=== PATIENT | female | born 1990 | race Caucasian/White ===

== ENCOUNTER 2017-02-24 22:13 | Inpatient (IN) | payer BC ==
[~2017-02-24] VITALS: Ht 162.6 cm; Wt 115.9 kg
[~2017-02-24 22:13] MED LIST: MACROBID 1100 MG/CAP PO; MONESSA PO
[2017-02-24] MEDS ORDERED: PRENATAL1 TA7 PO (22:55)
[2017-02-24 23:00] VITALS: BP 136/80; PULSE 121; TEMP 98.5
[2017-02-24 23:29] LABS: BASO # 0.1 (0.0-0.2); BASO % 0.4 % (0.0-2.0); EOS # 0.1 (0.0-0.7); EOS % 0.9 % (0-4.0); GRAN % 74.6 % (42.2-75.2); HEMATOCRIT 32.2 % (37.0-47.0); HEMOGLOBIN 10.6 g/dl (12.5-16.0); LYMPH # 2.3 (1.2-3.4); LYMPH % 17.3 % (20.0-51.0); MEAN CELL VOLUME 83 fl (80.0-100.0); MEAN CORPUSCULAR HEMOGLOBIN 27 pg (27.0-31.0); MEAN CORPUSCULAR HGB CONC 33 g/dl (33.0-37.0); MEAN PLATELET VOLUME 9.6 fl (7.4-10.4); MONO # 0.8 (0.1-0.6); MONO % 5.8 % (1.7-9.3); PLATELET COUNT 300 K/mm3 (130-400); RED BLOOD COUNT 3.86 M/mm3 (4.10-5.30); REDCELL DISTRIBUTION WIDTH-CV 14.6 % (11.5-14.5); WHITE BLOOD COUNT 13.3 K/mm3 (4.8-10.8)
[2017-02-24 23:30] VITALS: BP 118/76; PULSE 106
[2017-02-25] VITALS (75 sets, daily range): BP systolic 94–148; BP diastolic 52–94; PULSE 80–122; TEMP 97.2–98.8
[2017-02-26 02:31] VITALS: BP 115/64; PULSE 104; TEMP 98.5
[2017-02-26 07:24] VITALS: BP 118/59; PULSE 102
[2017-02-26 08:01] LABS: BASO % 0.2 % (0.0-2.0); EOS # 0.1 (0.0-0.7); EOS % 0.3 % (0-4.0); GRAN # 15.7 (1.4-6.5); GRAN % 81.4 % (42.2-75.2); HEMATOCRIT 28.5 % (37.0-47.0); HEMOGLOBIN 9.3 g/dl (12.5-16.0); LYMPH # 2.2 (1.2-3.4); LYMPH % 11.6 % (20.0-51.0); MEAN CELL VOLUME 85 fl (80.0-100.0); MEAN CORPUSCULAR HEMOGLOBIN 28 pg (27.0-31.0); MEAN CORPUSCULAR HGB CONC 33 g/dl (33.0-37.0); MEAN PLATELET VOLUME 9.5 fl (7.4-10.4); MONO # 1.1 (0.1-0.6); MONO % 5.5 % (1.7-9.3); PLATELET COUNT 303 K/mm3 (130-400); RED BLOOD COUNT 3.37 M/mm3 (4.10-5.30); REDCELL DISTRIBUTION WIDTH-CV 14.9 % (11.5-14.5); WHITE BLOOD COUNT 19.3 K/mm3 (4.8-10.8)
[2017-02-26 14:12] VITALS: BP 125/68; PULSE 120; TEMP 99.2
[2017-02-26 17:23] VITALS: BP 114/67; PULSE 108; TEMP 98.4
[2017-02-26 20:40] VITALS: BP 121/78; PULSE 110; TEMP 98
[2017-02-27 06:44] VITALS: BP 127/78; PULSE 115; TEMP 98
[2017-02-27] MEDS ORDERED: IBU800 M1 PO (08:30)
[2017-02-27] MEDS ORDERED: PERCOCET 325 MG1 TA2 PO (08:30)
[2017-02-27] MEDS ORDERED: FERROUS SU325 MG/TAB PO (08:49)
== END 2017-02-27 11:30 | disposition home or self-care (01) | DRG 775 ==
LOC: LDRO 22:13 → LDR 22:48 → OB 22:48
PROVIDERS: Obstetrics & Gynecology; Student in an Organized Health Care Education/Training Program
PROC: 10D07Z6 Extraction of Products of Conception, Vacuum, Via Natural or Artificial Opening (ICD-10-PCS; principal; 2017-02-25)
PROC: 0UQMXZZ Repair Vulva, External Approach (ICD-10-PCS; 2017-02-25)
PROC: 0W8NXZZ Division of Female Perineum, External Approach (ICD-10-PCS; 2017-02-25)
DX: O48.0 Post-term pregnancy (principal); O76 Abnormality in fetal heart rate and rhythm complicating labor and delivery; O75.89 Other specified complications of labor and delivery; O69.1XX0 Labor and delivery complicated by cord around neck, with compression, not applicable or unspecified; O77.0 Labor and delivery complicated by meconium in amniotic fluid; O71.82 Other specified trauma to perineum and vulva; Z3A.40 40 weeks gestation of pregnancy; Z37.0 Single live birth
CPT/HCPCS: J0690; J2590; J3010; J7120